=== PATIENT | female | born 1960 | race Caucasian/White ===

== ENCOUNTER 2022-07-22 15:05 | Emergency (ER) | payer BC ==
[~2022-07-22] VITALS: Ht 167.6 cm; Wt 86.6 kg
[2022-07-22] MEDS ORDERED: EVISTA60 MG PO (15:23)
== END 2022-07-22 17:59 | disposition home or self-care (01) ==
LOC: ER 15:05
DX: S93.509A Unspecified sprain of unspecified toe(s), initial encounter (principal); X58.XXXA Exposure to other specified factors, initial encounter; Y93.89 Activity, other specified; Y92.89 Other specified places as the place of occurrence of the external cause; Y99.8 Other external cause status